=== PATIENT | male | born 1990 | race Caucasian/White ===

== ENCOUNTER 2018-09-16 08:37 | Emergency (ER) | payer OTHER ==
[~2018-09-16] VITALS: Ht 175.3 cm; Wt 88.8 kg
[~2018-09-16 08:37] MED LIST: ACET500C5 PO; FAMO40TA66 PO; MECL12.574 PO; OMEP40CA3 PO; ONDA4TAB35 PO; PANT40TA3 PO
[2018-09-16 08:41] VITALS: BP 126/69; PULSE 90; RESP 18; Ht 175.3 cm; Wt 88.8 kg
[2018-09-16] MEDS ORDERED: METHYLPREDNISOLONE 125 MG INJ IM ONE (09:30)
[2018-09-16] MEDS ORDERED: MOME17SP14 NASAL (10:09)
[2018-09-16] MEDS ORDERED: CEFD300C2 PO (10:09)
--- NOTE | 2018-09-16 10:24 | ERD ---
ER Documentation Chief Complaint Chief Complaint PT c/o B ear pain R>L X 4-5 days. HPI Patient is a 28 years old male with no known past medical history presenting to the clinic for bilateral ear pressure and left ear pain for 5 days. Patient admits to mild cough with sore throat. Patient admits to seeing his primary care doctor who saw cotton in his left ear with excessive cerumen. Patient was instructed to use Debrox, however patient reports of left ear pain. Patient also reports of sinus pressure nasal congestion. Denies taking any other OTC medication. Patient denies fever, chills, night sweats, chest pain, abdominal pain, nausea, emesis. ROS All systems reviewed and are negative except as per history of present illness. Medications Home Meds Active Scripts Mometasone Furoate* (Nasonex*) 50 Mcg/[place] - 17 Gm [place].pump, 2 SPRAY NASAL BID, #1 BOTTLE TO EACH NOSTRIL Prov:FRITZ ROMERO PA-C 09/16/18 Cefdinir (Cefdinir) 300 Mg Capsule, 300 MG PO BID for 7 Days, #14 CAP Prov:FRITZ ROMERO PA-C 09/16/18 Meclizine Hcl* (Antivert*) 12.5 Mg Tab, 12.5 MG PO Q6H PRN for DIZZINESS, #20 TAB Prov:JENNA PURCELL PA-C 01/06/16 Acetaminophen* (Tylophen*) 500 Mg Capsule, 1 CAP PO Q6H PRN for PAIN AND OR E LEVATED TEMP, #20 CAP Prov:JENNA PURCELL PA-C 01/06/16 Famotidine* (Pepcid*) 40 Mg Tablet, 40 MG PO BID, #60 TAB Prov:SHAWANDA PATRICIA PA-C 12/22/15 Ondansetron Hcl* (Zofran* ODT) 4 mg -ODT Tab.disper, 4 MG PO Q6 PRN for NAUSEA AND/OR VOMITING, #10 TAB Prov:ANGELINE MACKAY NP 03/08/15 Omeprazole* (Prilosec*) 40 Mg Capsule., 40 MG PO DAILY for 15 Days, CAP Prov:ANGELINE MACKAY NP 03/08/15 Pantoprazole* (Protonix*) 40 Mg Tablet.dr, 40 MG PO DAILY, #20 TAB Prov:LEAH CARNEY I. INSPECTOR TYPE 12/28/14 Allergies Allergies: Coded Allergies: Penicillins (Verified Allergy, Mild, 03/07/15) PMhx/Soc Medical and Surgical Hx: pt denies Medical Hx History of Surgery: Yes (left wrist tendinitis surgery) Anesthesia Reaction: No Hx Neurological Disorder: No Hx Respiratory Disorders: No Hx Cardiac Disorders: No Hx Psychiatric Problems: No Hx Miscellaneous Medical Probl: Yes (GASTRITIS) Hx Alcohol Use: No Hx Substance Use: No Hx Tobacco Use: No Smoking Status: Never smoker Physical Exam Vitals Vital Signs Date Temp Pulse Resp B/P (MAP) Pulse Ox O2 O2 Flow FiO2 Time Delivery Rate 09/16/18 98.6 90 18 126/69 98 08:41 (88) Physical Exam Const: No acute distress Head: Atraumatic. Frontal, ethmoidal sinus tenderness. Eyes: Normal Conjunctiva ENT: Normal Nose and Mouth. Oropharyngeal exam unremarkable. Excessive cerumen in left ear canal. No mastoid tenderness. Neck: Full range of motion. No meningismus. Resp: Clear to auscultation bilaterally. No rales, rhonchi, wheezing. Cardio: Regular rate and rhythm, no murmurs Neur: Awake and alert Psych: Normal Mood and Affect Results 24 hrs Current Medications Medications Dose Sig/Bere Start Time Status Last (Trade) Ordered Route PRN Stop Time Admin Dose Reason Admin 125 mg ONCE ONCE 09/16/18 DC 09/16/18 Methylprednis IM 09:30 09/16/18 09:45 olone Sodium 09:31 Succinate (Solu-Medrol) Procedures/MDM Patient was seen and evaluated for left cerumen impaction. Patient was given left ear irrigation ED. left ear exam post ear lavage revealed erythematous tympanic membrane which is most significant for left otitis media. No x-ray required due to an unremarkable pulmonary exam. Suspicion for pneumonia and sepsis. Patient also has superimposed sinusitis. Patient was given Solu-Medrol 125 mg IM in clinic with significant improvement of symptoms. Patient is stable and ready for discharge. Follow-up with PCP. Patient will be discharged with cefdinir due to the penicillin allergy Nasonex. Patient was advised to use OTC Robitussin for cough. Patient was advised to avoid using Q- tips. Departure Diagnosis: Primary Impression: Excessive cerumen in left ear canal Additional Impressions: Sinusitis Sinusitis location: other Chronicity: acute Recurrence: non-recurrent Qualified Codes: J01.80 - Other acute sinusitis Left acute otitis media Condition: Stable Patient Instructions: Cerumen Impaction, Home Care, Otitis Media, Abx Tx (Adult) Referrals: COMMUNITY CLINICS YOU HAVE RECEIVED A MEDICAL SCREENING EXAM AND THE RESULTS INDICATE THAT YOU DO NOT HAVE A CONDITION THAT REQUIRES URGENT TREATMENT IN THE EMERGENCY DEPARTMENT. FURTHER EVALUATION AND TREATMENT OF YOUR CONDITION CAN WAIT UNTIL YOU ARE SEEN IN YOUR DOCTORS OFFICE WITHIN THE NEXT 1-2 DAYS. IT IS YOUR RESPONSIBILITY TO MAKE AN APPOINTMENT FOR FOLOW-UP CARE. IF YOU HAVE A PRIMARY DOCTOR --you should call your primary doctor and schedule an appointment IF YOU DO NOT HAVE A PRIMARY DOCTOR YOU CAN CALL OUR PHYSICIAN REFERRAL HOTLINE AT IF YOU CAN NOT AFFORD TO SEE A PHYSICIAN YOU CAN CHOSE FROM THE FOLLOWING [facility] [address] [facility] [address] [facility] [facility] [address] [facility] [address] [facility] [address] [facility]. [facility] [address] [facility]. [facility] YOU HAVE RECEIVED A MEDICAL SCREENING EXAM AND THE RESULTS INDICATE THAT YOU DO NOT HAVE A CONDITION THAT REQUIRES URGENT TREATMENT IN THE EMERGENCY DEPARTMENT. FURTHER EVALUATION AND TREATMENT OF YOUR CONDITION CAN WAIT UNTIL YOU ARE SEEN IN YOUR DOCTORS OFFICE WITHIN THE NEXT 1-2 DAYS. IT IS YOUR RESPONSIBILITY TO MAKE AN APPOINTMENT FOR FOLOW-UP CARE. IF YOU HAVE A PRIMARY DOCTOR --you should call your primary doctor and schedule and appointment IF YOU DO NOT HAVE A PRIMARY DOCTOR YOU CAN CALL OUR PHYSICIAN REFERRAL HOTLINE AT . IF YOU CAN NOT AFFORD TO SEE A PHYSICIAN YOU CAN CHOSE FROM THE FOLLOWING COUNTS INCLUDE 234 BEDS AT THE [facility] INSTITUTIONS: [facility] [address] [place] [address] [facility] [address] [place] [address] [facility] [address] [place] [address] Additional Instructions: Paciente aconseja volver a Departamento de urgencias inmediatamente para sntomas nuevos o que empeoran . Paciente aconseja posteriores con el PCP en 2-3 steven . Paciente verbaliza la comprehensin y est de acuerdo con el tratamiento y el curso de accin. Si el paciente no tiene ninguna de atencin primaria pueden seguir con [facility] [address] [place] [address] o [facility] [address] [place] [id number] FRITZ ROMERO PA-C Sep 16, 2018 10:24
== END 2018-09-16 10:18 | disposition home or self-care (01) ==
LOC: FTE 08:37
DX: H61.22 Impacted cerumen, left ear (principal); J01.80 Other acute sinusitis; H66.90 Otitis media, unspecified, unspecified ear
CPT/HCPCS: 69209; 96372; J2930; Z7502